=== PATIENT | female | born 1980 | race African-American/Black ===

== ENCOUNTER 2023-06-14 14:31 | Emergency (ER) | payer MEDICAID ==
[2023-06-14] MEDS: Ibuprofen 800 MG Tab PO ONE (15:46)
== END 2023-06-14 17:20 | disposition home or self-care (01) ==
LOC: FB.ED 14:31
DX: S96.912A Strain of unspecified muscle and tendon at ankle and foot level, left foot, initial encounter (principal); I10 Essential (primary) hypertension; E11.9 Type 2 diabetes mellitus without complications; E66.9 Obesity, unspecified; Z79.899 Other long term (current) drug therapy; Z79.4 Long term (current) use of insulin; Z68.38 Body mass index [BMI] 38.0-38.9, adult; X50.0XXA Overexertion from strenuous movement or load, initial encounter
CPT/HCPCS: 73630-LT; 99283; A9270-GY